=== PATIENT | male | born 1970 | race Caucasian/White ===

== ENCOUNTER → 2024-04-17 | Outpatient (CLI) | payer OTHER ==
[2024-04-17 13:33] VITALS: BP 234/149; PULSE 102; RESP 16; TEMP 98.3
--- NOTE | 2024-04-17 14:11 | P.SLEEP ---
History of Present Illness DATE: 04/17/2024 CONSULTATION/NEW PATIENT EVALUATION HISTORY OF PRESENT ILLNESS/SLEEP-WAKE EVALUATION: 53-year-old gentleman had b een evaluated in the sleep center for possible obstructive sleep apnea hypopnea syndrome. SLEEP SCHEDULE: Usually sleep schedule from midnight until 7:30 AM 7 days a week. FALLING ASLEEP: No problems with falling asleep. DURING SLEEP: Patient has loud snoring and witnessed episodes of stop breathing during sleep according to his positive history of awakenings from sleep, toss and turn during the sleep, episodes of nocturia, dry mouth no history of hypnogogical hallucinations, sleep paralysis, or cataplexy. DURING THE DAY/WAKE STATE: In the morning patient wake up tired. [place] sleep iness scale is significantly increased to 12. Patient may take 1 nap during the day. PAST MEDICAL HISTORY: Hypertension, diabetes mellitus, hyperlipidemia, nasal fracture in the past. PAST SURGICAL HISTORY: None. MEDICATIONS: None, although patient was recommended medication for the blood pressure. He received medication from pharmacy, but did not start using it. SOCIAL HISTORY: Please see below. FAMILY HISTORY: See below. REVIEW OF SYSTEMS: Snoring, awakenings from sleep, sleepiness during the day. No fevers. No double vision. No recent chest pain. No shortness of breath. No abd ominal pain. No bleeding episodes. No blood in urine. No seizure episodes. No headaches, no changes of the vision recently PHYSICAL EXAMINATION: GENERAL: A pleasant patient without any distress. VITAL SIGNS: Have been reviewed, please see below weight 246.0 pounds, BMI 40.0. HEENT: PERRLA, EOMI. Evaluation of oropharynx showed tongue protrudes midline, low position of soft palate Mallampati 34. NECK: Supple. No JVD. Thyroid is not palpable. 19.5 inches in circumference. LUNGS: Clear to percussion and to auscultation. Good air exchange. No wheezing or rhonchi. HEART: S1, S2 regular. No murmurs, gallops or rubs. ABDOMEN: Soft and nontender. Bowel sounds are present. No organomegaly appreciated. EXTREMITIES: No clubbing or cyanosis. STRIKE ON MACHINE OPERATOR: Awake, alert, and oriented x3. Cranial nerves 2 to 7 intact. There is no fasciculation or atrophy noted. No focal deficits observed. ASSESSMENT: 1. Snoring, witnessed episodes of stop breathing during the sleep, extremely low position of soft palate Mallampati 34, extremely wide neck 19.5 inches in circumference sleepiness with [place] Sleepiness Scale 12. Obstructive sleep apnea hypopnea. 2. Hypertension, patient was recommended to take medication for hypertension by primary care physician. Patient received medication, but did not start using it. High level of blood pressure in the office today. No chest pain, no headaches, no shortness of breath, no focal deficit. 3. Obesity, BMI 40.0. 4. History of increasing blood sugar. 5 hyperlipidemia. 6 . Status post nasal fracture. PLAN: 1. Patient was recommended immediately to start medication for blood pressure, which he has at home but did not start using it. Patient was recommended to go to emergency room, if develop any symptoms or blood pressure will not reduce after starting medication. Low-sodium diet. Monitoring blood pressure. 2. Polysomnography for evaluation of patient's breathing during sleep. 3. Following plan after reading sleep study. 4. No driving if patient feels any sleepiness. Patient is aware of civil and criminal liability for unsafe driving. 5. Sleep hygiene with regular sleep time for at least 7.5-8 hours. 6. Watching and losing weight. Thank you very much for referring this patient for consultation. Sincerely, Alok Sigala MD, PhD, FAASM. Diplomat of [place] [employer], Sleep Medicine Board by [place] [employer] [employer] Social Work Lecturer of [place] [facility] [place] cc: Anatoly Nolen DO Past Medical History Past Medical History: Hyperlipidemia, Hypertension Additional Past Medical History / Comment(s): Snoring. blood sugar was high and they are monitoring. History of Any Multi-Drug Resistant Organisms: None Reported Past Surgical History: No Surgical Hx Reported Past Psychological History: No Psychological Hx Reported Smoking Status: Former smoker Past Alcohol Use History: Daily Past Drug Use History: Marijuana - Past Family History Father Family Medical History: Myocardial Infarction ([place]) Additional Family Medical History / Comment(s): Liver problems - agent orange, think he h ad hapatitis too. Physical Exam Vitals: Vital Signs Temp Pulse Resp BP Pulse Ox 04/17/24 13:21 98.3 F 102 H 16 234/149 98 Intake and Output 04/16/24 04/17/24 04/17/24 22:59 06:59 14:59 Other: Weight 111.584 kg Sleep Note - Sleep Data ESS Total: 12 - Sleep Note Sleep Note: Temperature: 98.3 F Pulse Rate: 102 Respiratory Rate: 16 Blood Pressure: 234/149 SpO2: 98 Height: 5 ft 5.7 in Weight: 111.584 kg BMI: Neck Circumference: 19.5
== END ==
LOC: 3 N SLEEP 13:05
PROVIDERS: ATTEND Internal Medicine
DX: G47.33 Obstructive sleep apnea (adult) (pediatric) (principal); I10 Essential (primary) hypertension; E66.9 Obesity, unspecified; Z68.41 Body mass index [BMI] 40.0-44.9, adult; E78.5 Hyperlipidemia, unspecified; Z86.39 Personal history of other endocrine, nutritional and metabolic disease; Z87.81 Personal history of (healed) traumatic fracture
CPT/HCPCS: 99202

== ENCOUNTER 2024-05-20 19:37 | Outpatient (CLI) | payer OTHER ==
--- NOTE | 2024-05-30 13:27 | P.PCN ---
Description of Procedure: POLYSOMNOGRAPHY REPORT PROCEDURE(S)/DATE(S): Polysomnography 05/20/2024 CLINICAL: Patient has been seen in the sleep center for evaluation of obstructive sleep apnea-hypopnea syndrome. Please see my consultation. Sleep study has been done for evaluation of patient breathing during the sleep. PROCEDURE: The standard montage for clinical polysomnography included the electroencephalogram, the electrooculogram, the mentalis surface electromyography and Lead II cardiography. The respiratory battery consisted of measurements of nasal/buccal air flow, pressure transducer measurements from nose, thoracic and/or abdominal effort and intercostal surface electromyography. Video monitoring has been done to check for any parasomnia events. Nocturnal oxyhemoglobin saturations were obtained by finger oximetry. Step-morrell titration with positive airway pressure was utilized to control the respiratory events, if necessary. RESULTS: During the diagnostic sleep study sleep efficiency was atrial at 56.0%. Latency to sleep onset was extremely long at 138.0 min. Sleep architecture s howed stage NI was extremely high 41.2%, Delta sleep was absent 0%, REM sleep was short 5.7%. Respiratory channel showed 0 obstructive apneas, 0 mixed apneas, 0 central apneas, 65 hypopneas with lowest oxygen level 85%. Total apnea hypopnea index was 17.8. Heart rate was in the range between 61 and 78, average 66. EMG showed 4.1 periodic limb movements per hour with 0.5 micro-arousals per ho ur. IMPRESSIONS: 1. Moderate obstructive sleep apnea hypopnea syndrome. 2. No significant periodic limb movements have been documented. Please see other impressions from consultation PLAN: 1. The patient will have PAP titration for correction of respiratory abnormalities during the sleep. 2. Losing weight program. 3. Sleep hygiene with regular time in bed for at least 7-1/2 hours. 4. No driving if feeling sleepiness. Thank you very much for allowing me to participate in the management of your patient. Sincerely, Alok Sigala MD, PhD, FAASM. Diplomat of [place] [employer], Sleep Medicine Board by [place] [employer] Secondary Education Professor of [place] [facility] [place] [facility] [place] cc: Anatoly Nolen DO
== END 2024-05-21 05:15 | disposition home or self-care (01) ==
LOC: 3 N SLEEP 19:37
PROVIDERS: ATTEND Internal Medicine
DX: G47.33 Obstructive sleep apnea (adult) (pediatric) (principal)
CPT/HCPCS: 95810